=== PATIENT | female | born 1950 | race Caucasian/White ===

== ENCOUNTER 2020-01-09 05:40 | Outpatient (RCR) | payer MEDICARE ==
[~2020-01-09] VITALS: Ht 154 cm; Wt 109.0 kg
[~2020-01-09 05:40] MED LIST: LISI-552 PO
[2020-01-13] MEDS ORDERED: IBUP-1773 PO (09:25)
== END 2020-01-09 15:03 | disposition home or self-care (01) ==
LOC: PREOP 05:40
PROVIDERS: ATTEND Obstetrics & Gynecology
DX: Z01.818 Encounter for other preprocedural examination (principal); N95.0 Postmenopausal bleeding; Z20.828 Contact with and (suspected) exposure to other viral communicable diseases
CPT/HCPCS: 87635

== ENCOUNTER 2020-01-13 07:56 | Day surgery (SDC) | payer MEDICARE ==
[~2020-01-13] VITALS: Ht 154 cm; Wt 109.0 kg
[2020-01-13] VITALS (7 sets, daily range): BP systolic 114–145; BP diastolic 60–98
[2020-01-13] MEDS ORDERED: BUPIVACAINE 0.25% 30 ML (SENSORCAINE) VIAL ONE (08:13)
[2020-01-13] MEDS ORDERED: SEVOFLURANE (ULTANE) 15 ML INHAL SOLN ONE ×2 (08:24→09:51)
[2020-01-13] MEDS ORDERED: LIDOCAINE PF 2% 5 ML (XYLOCAINE) VIAL ONE (08:24)
[2020-01-13] MEDS ORDERED: proPOfol 200 MG/20 ML (DIPRIVAN) VIAL IV ONE (08:24)
[2020-01-13] MEDS ORDERED: MIDAZOLAM 2 MG/2 ML (VERSED) VIAL ONE (08:25)
[2020-01-13] MEDS ORDERED: fentaNYL INJECTION 100 MCG/2 ML AMP ONE (08:25)
[2020-01-13 08:38] LABS: BASOPHILS % (AUTO) 1 % (0-10); EOSINOPHILS # (AUTO) 0.2 10^3/uL (0.0-0.3); EOSINOPHILS % (AUTO) 3 % (0-10); HEMATOCRIT 43 % (35-52); HEMOGLOBIN 14.4 G/DL (11.5-16.0); LYMPHOCYTES # (AUTO) 1.8 X 10^3 (1.0-4.0); LYMPHOCYTES % (AUTO) 27 % (12-44); MEAN CORPUSCULAR HEMOGLOBIN 30 PG (25-34); MEAN CORPUSCULAR HGB CONC 34 G/DL (32-36); MEAN CORPUSCULAR VOLUME 89 FL (80-99); MEAN PLATELET VOLUME 13.3 FL (7.4-10.4); MONOCYTES # (AUTO) 0.8 X 10^3 (0.0-1.0); MONOCYTES % (AUTO) 12 % (0-12); NEUTROPHILS # (AUTO) 3.8 X 10^3 (1.8-7.8); NEUTROPHILS % (AUTO) 58 % (42-75); PLATELET COUNT 192 10^3/uL (130-400); RED CELL DISTRIBUTION WIDTH 15.4 % (10.0-14.5); WHITE BLOOD COUNT 6.5 10^3/uL (4.3-11.0)
--- OUTSIDE RECORDS SUMMARY | 2020-01-13 08:38 | XMS REPORT | CCD ---
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 [id number] 1 EA ~~ VANCOMYCIN: 1 GM VIAL [id number] 2355 MG Problems Unknown or Not Available. Procedures Procedure Code Procedure Type Date Arthroscopy shoulder surg debridement extensive; (-RT Right side of body) 55373 CPT 05/19/2016 Arthroscopy shoulder rotator cuff repair; (-RT Right s charisma of body) 18178 CPT 05/19/2016 Results Unknown or Not Available. Function Status Unknown or Not Available. History of Immunizations Unknown or Not Available. Plan of Treatment Unknown or Not Available. Social History Smoking Status Code Start Date End Date Former smoker [id number] Vital Signs Vital Sign Value Unit Date/Time Recent/I nitial? Weight Measured 225 [lb_av] 05/17/2016 12:54 Initial VS Height 62 [in_i] 05/17/2016 12:54 Initi al VS BMI (Body Mass Index) 41.15 kg/m2 05/17/2016 12 :54 Initial VS BSA (Body Surface Area) 2.11 m2 05/17/2016 12:54 Initial VS Respiratory Rate 23 /min 05/19/2016 11:42 Initial VS Heart Rate 91 /min 05/19/2016 11:42 I nitial VS O2 % BldC Oximetry 74 % 05/19/2016 11:42 Initial VS BP Systolic 107 mm[Hg] 05/19/2016 11:44 Initial VS BP Diastolic 49 mm[Hg] 05/19/2016 11:44 Initial VS BP Systolic 103 mm[Hg] 05/19/2016 12:13 Most Recent VS BP Diastolic 54 mm[Hg] 05/19/2016 12:13 Most Recent VS Respiratory Rate 21 /min 05/19/2016 12:13 Most Recent VS Heart Rate 79 /min 05/19/2016 12:13 M ost Recent VS O2 % BldC Oximetry 93 % 05/19/2016 12:13 Most Recent VS Function Status Unknown or Not Available. Goals Unknown or Not Available. ASSESSMENTS Unknown or Not Available. Health Concerns Section Unknown or Not Available.
--- OUTSIDE RECORDS SUMMARY | 2020-01-13 08:38 | XMS REPORT | Continuity of Care Document ---
Author Organization Unknown Address Unknown Phone Unavailable Allergies Active Description Code Type Severity Reaction Onset Reported/Identified Relationship to Patient Clinical Status Yes FENTANYL MILD MILD Yes FENTANYL MILD UNKNOWN Yes ZOSYN MILD MILD Yes ZOSYN MILD UNKNOWN Yes fentanyl [id number] Drug Allergy Mild ITCHING 01/07/2020 Yes No Known Drug Allergies [id number] Drug Allergy Unknown N/A 01/07/2020 Yes ranitidine [id number] Drug Allerg y Unknown N/A 01/07/2020 Medications Medication Packaging Start Date St op Date Route Dosage Sig LACTATED RINGERS 1000CC IV BAG INJ ml 04/06/2018 04/13/2018 CONTINUOUSEVERY 0 Hour OXYCODONE IR TAB 5 MG (OXY I R (IMMEDIATE RELEASE)) MG 04/06/2018 04/13/2018 PRN Q4H D5 LAC RINGERS 1000CC IV BAG INJ ml 04/06/2018 04/13/2018 CONTINUOUSEVERY 0 Hour ONDANSETRON VIAL INJ 4 MG/2CC (ZOFRAN 2CC VIAL) MG 04/06/2018 04/13/2018 PRN Q4H Hydromorphone inj 2mg/cc vial (Dilaudid) MG 04/06/2018 04/13/2018 PRN Q4H OXYCODONE IR TAB 5 MG (OXY I R (IMMEDIATE RELEASE)) TAB 04/06/2018 04/13/2018 PRN Q4H ALUM/MAG/SIMETH 30CC LIQ (MYLANTA PLUS) cc 04/06/2018 04/16/2018 PRN Q4H PANTOPRAZOLE VIAL INJ 40 MG (PROTONIX IV) MG 04/07/2018 04/16/2018 Daily&0900 Problems Date Dx Coded Attending Type Code Diagnosis Diagnosed By 07/30/2017 W 034.0 STRE PTOCOCCAL SORE THROAT 07/30/2017 W B95.3 STRE PTOCOCCUS PNEUMONIAE THE CAUSE OF DISEASES CLASSIFIED ELSEWHERE 04/07/2018 Rea Pina W 214.1 LIPOMA OF OTHER SKIN AND SUBCUTANEOUS TISSUE 04/07/2018 Rea Pina A 552.20 UNSPECIFIED VENTRAL HERNIA WITH OBSTRUCTION 04/07/2018 Rea Pina W 552.3 DIAPHRAGMATIC HERNIA WITH OBSTRUCTION 04/07/2018 Rea Pina W D17.1 BENIGN LIPOMATOUS NEOPLASM OF SKIN, SUBCU OF TRUNK 04/07/2018 Rea Pina A K43.6 OTHER AND UNSP VENTRAL HERNIA WITH OBSTRUCTION, W/O GA NGRENE 04/07/2018 Rea Pina W K44.9 DIAPHRAGMATIC HERNIA WITHOUT OBSTRUCTION OR GANGRENE Procedures There is no data. Results Test Result Range CBC with Auto Diff - 03/15/18 11:16 Baso% 0.50 % 0.00-2.50 Eos 0.2 K/uL 0.0-0.7 Eos% 2.9 % 0.0-7.0 Hct 43.8 % 36.0-46.0 Hgb 14.6 g/dL 13.0-15.0 Lym 1.75 K/uL 0.60-3.40 Lym% 28.5 % 10.0-50.0 MCH 30.3 pg 27.0-31.0 MCHC 33.3 g/dL 32.0-36.0 MCV 90.9 fL 80.0-97.0 [place]% 9.8 % 0.0-12.0 Tish% 58.3 % 37.0-80.0 Plt 186 K/uL 150-400 RBC 4.82 M/uL 3.60-5.00 RDW 15.2 % 11.6-14.8 WBC 6.15 K/uL 5.00-10.00 Tish 3.59 K/uL 2.00-6.90 [place] 0.6 K/uL 0.0-0.9 Baso 0.0 K/uL 0.0-0.2 Protime - 03/26/18 11:41 INR 0.9 1.0-4.0 Protime 10.9 Sec 9.9-12.8 MRSA Screen - 04/06/18 07:36 FINAL CULTURE RESULTS MRSA Negative Nasal Culture MEDIA PLATED Setup at 09:45 on 04/06/2018 BMP - 04/07/18 07:04 Anion Gap 13 6-14 BUN 12 mg/dL 5-25 Calcium 8.9 mg/dL 8.3-10.4 Chloride 103 mmol/L 95-114 CO2 27 mEq/L 22-33 Creat 0.87 mg/dL 0.50-1.50 eGFR 64 mL/min/1.73m2 >59 Glucose 112 mg/dL 70-110 Osmo 286 280-295 Potassium 4.6 mmol/L 3.5-5.3 Sodium 138 mmol/L 134-148 Surgical Pathology - 06/05/19 18:19 Surg Path Sent to [facility] Pathology Lipid Panel - 12/11/19 14:08 C/HDL 4.7 3.7-6.7 Cholesterol 202 mg/dL 100-240 HDL 43 mg/dL 30-85 LDL-Calculated 142 mg/dL 0-100 Trig 87 mg/dL 35-160 VLDL 17 mg/dL 0-42 Coronavirus SARS-CoV-2 SO 2018 - 0 07:52 Coronavirus Ab [Units/volume] in Serum Negative Negative Encounters ACCT No. Visit Date/Time Discharge Status Pt. Type Provider Facility Loc./Unit Complaint [id number] 12/30/2019 13:46:00 12/30/2019 23:59 :00 DIS King Arita [id number] 12/11/2019 14:06:00 12/11/2019 23:59 :00 DIS King Arita [id number] 12/11/2019 14:01:00 12/11/2019 23:59 :00 King Palencia [id number] 12/09/2019 11:39:00 12/09/2019 23:59 :00 DIS King Arita [id number] 12/09/2019 11:11:00 12/09/2019 23:59 :00 DIS King Arita [id number] 06/12/2019 13:48:00 06/12/2019 23:59: 00 King Palencia [id number] 06/05/2019 18:16:00 06/05/2019 23:59: 00 [facility] Outpatient King Brown [id number] 06/05/2019 16:11:00 06/05/2019 23:59: 00 King Palencia [id number] 05/29/2019 13:40:00 05/29/2019 23:59: 00 King Palencia [id number] 04/06/2018 06:45:00 04/07/2018 10:53: 00 DIS Outpatient SilvanaRea [facility] MED-SURG [id number] 03/26/2018 11:34:00 03/26/2018 23:59: 00 DIS Outpatient Rea Pina [id number] 03/15/2018 11:09:00 03/15/2018 23:59: 00 DIS Outpatient King Brown [id number] 03/13/2018 17:07:00 03/13/2018 23:59: 00 DIS Outpatient King Brown [id number] 04/05/2018 08:35:42 Document Registration [id number] 07/30/2017 14:20:00 Document Registration [id number] 01/09/2020 05:40:00 020 15:03:00 DIS Outpatient PASTOR DINERO DO [facility] PREOP POST MENOPAUSAL BLEEDI [id number] 01/13/2020 09:15:00 P EN Preadmit PASTOR DINERO DO [facility] SDC POST MENOPAUSAL BLEEDING [id number] 04/06/2018 06:45:00 Document Registration
[2020-01-13] MEDS ORDERED: LACTATED RINGERS 1,000 ML IV PRN (08:44)
[2020-01-13] MEDS ORDERED: ONDANSETRON 4 MG/2 ML (SDV) Z0FRAN ONE (09:18)
[2020-01-13] MEDS ORDERED: DEXAMETHASONE 10 MG/ML (DECADRON) 1 ML VIAL ONE (09:18)
--- NOTE | 2020-01-13 09:22 | Progress Note-Pre Operative ---
Pre-Operative Progress Note H&P Reviewed The H&P was reviewed, patient examined and no changes noted. Date Seen by Provider: Jan 13, 2020 Time Seen by Provider: 09:10 Date H&P Reviewed: Jan 13, 2020 Time H&P Reviewed: 09:15 Pre-Operative Diagnosis: PMB PASTOR DINERO DO Jan 13, 2020 09:22
[2020-01-13] MEDS ORDERED: D5 LR IV SOLUTION 1,000 ML IV SCH (09:23)
[2020-01-13] MEDS ORDERED: IBUP-1773 PO (09:25)
--- NOTE | 2020-01-13 09:26 | Discharge Inst-Women's Service ---
Discharge Inst-Women's Serv Depart Medication/Instructions New, Converted or Re-Newed RX: RX on Chart Problems Reviewed?: Yes Consults/Follow Up Additional Follow Up: Yes Orders/Referrals Dr. Dinero in 2 weeks Activity Activity: Activity as Tolerated Driving Instructions: No Driving for 1 Week NO SMOKING: NO SMOKING Nothing Inside Vagina: No Douching, No [place], No Tampons Diet Discharge Diet: No Restrictions Symptoms to Report to : Bleeding Excessive, Pain Increased, Fever Over 101 Degrees F, Vaginal Bleeding Increase, Questions/Concerns For Any Problems or Questions: Contact Your Physician PASTOR DINERO DO Jan 13, 2020 09:26
[2020-01-13] MEDS ORDERED: KETOROLAC 30 MG/ML VIAL IVP ONE (09:30)
[2020-01-13] MEDS ORDERED: ONDANSETRON 4 MG/2 ML (SDV) Z0FRAN IVP PRN (09:30)
--- NOTE | 2020-01-13 10:35 | Anesthesia-General Post-Op ---
General Patient Condition Mental Status/LOC: Same as Preop Cardiovascular: Satisfactory Nausea/Vomiting: Absent Respiratory: Satisfactory Pain: Controlled Complications: Absent Post Op Complications Complications None Follow Up Care/Instructions Patient Instructions None needed. Anesthesia/Patient Condition Patient Condition Patient is doing well, no complaints, stable vital signs, no apparent adverse anesthesia problems. No complications reported per nursing. AARON BROOKS CRNA Jan 13, 2020 10:35
--- NOTE | 2020-01-13 19:31 | OPERATIVE REPORT ---
DATE OF SERVICE: 01/13/2020 PREOPERATIVE DIAGNOSIS: A 69-year-old female with postmenopausal bleeding. POSTOPERATIVE DIAGNOSIS: A 69-year-old female with postmenopausal bleeding. PROCEDURE: D and C. SURGEON: Pastor Dinero DO ANESTHESIA: LMA. ESTIMATED BLOOD LOSS: Minimal. URINE OUTPUT: 25 mL drained at the start of the procedure. FLUIDS: 1000 mL lactated Ringer's solution. FINDINGS: As expected postmenopausal age vaginal atrophy cervical stenosis. SPECIMEN SENT: Endometrial curetting's. INDICATIONS FOR PROCEDURE: A 69-year-old female is a patient who underwent endometrial biopsy in the office for inadequate tissue was obtained. This biopsy was done for episode of postmenopausal bleeding. I discussed with the patient due to inadequacy of endometrial biopsy that I was unlikely that I passed through the cervix to obtain the tissue and this is likely due to cervical stenosis, I recommended the patient proceeding with D and C under anesthesia. Risks of procedure were discussed with the patient in detail and after all of her questions were answered, consent was obtained in the preoperative area, the patient was taken to the operating room. OPERATIVE REPORT IN DETAIL: Once in the operating room, anesthesia was found to be adequate, placed in dorsal lithotomy position, prepped and draped in normal sterile fashion. Timeout was performed. The bladder was then drained using straight catheterization. Weighted speculum was inserted to the patient's vagina. Right angle retractor was used to visualize the cervix, grasped at 12 o'clock position using a long Allis clamp. I then performed paracervical block at 3 and 9 o'clock positions on the cervix. 5 mL were used at each site using 0.25% Marcaine I injected. Care was taken to aspirate before injecting after which I gently sound the uterine cavity depth. I am unable to pass the sound through the cervix. Therefore, I have to use some long Metzenbaum to dilate the cervix by inserting the Metzenbaum scissors into the external cervical os and opening the scissors and tied to the os. I am able to open up the cervix. I then am able to sound the cavity depth was found to be approximately 7 to 8 cm. I then gently dilated the cervix using Hegar dilators to a maximum dilatation of approximately 8 mm at which point I performed a gentle curettage of the endometrium using a medium size endometrial curette. This was done on several different passes. A scant amount of endometrial tissue was collected. I sent this to pathology as endometrial curetting's, after which there was no active bleeding noted from any of my dissection planes. I removed all of the instruments from the patient's vagina. The patient tolerated the procedure well and was taken to recovery area in stable condition. Lap and sponge counts were correct at the end of the procedure. Instrument counts correct as well. Job ID: [id number] DocumentID: [id number] Dictated Date: 01/13/2020 10:09:14 Lang Path Therapist Date: 01/13/2020 19:30:47 Dictated By: PASTOR DINERO DO
== END 2020-01-13 11:30 | disposition home or self-care (01) ==
LOC: SDC 07:56
PROVIDERS: ATTEND Obstetrics & Gynecology
DX: N95.0 Postmenopausal bleeding (principal); E66.01 Morbid (severe) obesity due to excess calories; I10 Essential (primary) hypertension; Z68.42 Body mass index [BMI] 45.0-49.9, adult; Z88.8 Allergy status to other drugs, medicaments and biological substances; Z96.653 Presence of artificial knee joint, bilateral; Z87.891 Personal history of nicotine dependence; Z90.49 Acquired absence of other specified parts of digestive tract
CPT/HCPCS: 36415; 85025; 86850; 86900; 86901; 87081; 88305

== ENCOUNTER 2020-10-05 06:47 | Outpatient (RCR) | payer MEDICARE ==
[~2020-10-05] VITALS: Ht 157.5 cm; Wt 100.0 kg
[~2020-10-05 06:47] MED LIST changes: +IBUP-1773 PO; -LISI-552 PO; +LISI20TA26 PO
[2020-10-05] MEDS ORDERED: LOSA1TAB23 PO (16:21)
[2020-10-12] MEDS ORDERED: SMT80CT PO (07:31)
[2020-10-12] MEDS ORDERED: IBUP-844 PO (07:31)
[2020-10-12] MEDS ORDERED: HYDR-34 PO (07:31)
[2020-10-12] MEDS ORDERED: DCS100C PO (07:31)
== END 2020-10-06 15:27 | disposition home or self-care (01) ==
LOC: PREOP 06:47
PROVIDERS: ATTEND Obstetrics & Gynecology
DX: Z01.818 Encounter for other preprocedural examination (principal)

== ENCOUNTER 2020-10-12 06:07 | Day surgery (SDC) | payer MEDICARE ==
[~2020-10-12] VITALS: Ht 157.5 cm; Wt 100.0 kg
[2020-10-12] VITALS (13 sets, daily range): BP systolic 107–143; BP diastolic 60–73
[~2020-10-12 06:07] MED LIST changes: +LOSA1TAB23 PO
[2020-10-12] MEDS ORDERED: ceFAZolin 2 GM IV Premixed 50 ML IV ONE (06:15)
[2020-10-12] MEDS ORDERED: metroNIDAZOLE 500MG/100ML IVPB 100 ML IV ONE (06:15)
[2020-10-12] MEDS ORDERED: BUPIVACAINE 0.25% 30 ML (SENSORCAINE) VIAL ONE (06:20)
[2020-10-12] MEDS: LACTATED RINGERS 1,000 ML IV PRN ×2 (06:40→08:23)
[2020-10-12] MEDS ORDERED: proPOfol 200 MG/20 ML (DIPRIVAN) VIAL IV ONE (06:55)
[2020-10-12] MEDS ORDERED: ONDANSETRON 4 MG/2 ML (SDV) Z0FRAN ONE (06:55)
[2020-10-12] MEDS ORDERED: fentaNYL INJ 100 MCG/2 ML AMP ONE ×2 (06:55→08:24)
[2020-10-12] MEDS ORDERED: ROCURONIUM 10 MG/ML 5 ML SYRINGE IV ONE ×2 (06:55→08:18)
[2020-10-12] MEDS ORDERED: SEVOFLURANE (ULTANE) 15 ML INHAL SOLN ONE ×5 (06:55→09:18)
[2020-10-12] MEDS ORDERED: LIDOCAINE PF 2% 5 ML (XYLOCAINE) VIAL ONE (06:55)
[2020-10-12] MEDS ORDERED: MIDAZOLAM 2 MG/2 ML (VERSED) VIAL ONE (06:56)
[2020-10-12 06:58] LABS: BASOPHILS % (AUTO) 1 % (0-10); MEAN CORPUSCULAR HGB CONC 33 g/dL (32-36); MEAN CORPUSCULAR VOLUME 89 fL (80-99)
[2020-10-12 07:00] LABS: EOSINOPHILS # (AUTO) 0.2 10^3/uL (0.0-0.3); EOSINOPHILS % (AUTO) 3 % (0-10); HEMATOCRIT 41 % (35-52); HEMOGLOBIN 13.5 g/dL (11.5-16.0); LYMPHOCYTES # (AUTO) 2.1 10^3/uL (1.0-4.0); LYMPHOCYTES % (AUTO) 25 % (12-44); MEAN CORPUSCULAR HEMOGLOBIN 29 pg (25-34); MEAN PLATELET VOLUME 13.4 fL (9.0-12.2); MONOCYTES # (AUTO) 0.9 10^3/uL (0.0-1.0); MONOCYTES % (AUTO) 11 % (0-12); NEUTROPHILS # (AUTO) 4.9 10^3/uL (1.8-7.8); NEUTROPHILS % (AUTO) 60 % (42-75); PLATELET COUNT 216 10^3/uL (130-400); WHITE BLOOD COUNT 8.1 10^3/uL (4.3-11.0)
--- NOTE | 2020-10-12 07:26 | Progress Note-Pre Operative ---
Pre-Operative Progress Note H&P Reviewed The H&P was reviewed, patient examined and no changes noted. Date Seen by Provider: Oct 12, 2020 Time Seen by Provider: 07:10 Date H&P Reviewed: Oct 12, 2020 Time H&P Reviewed: 07:05 Pre-Operative Diagnosis: PMB, AUB, BMI 40 PASTOR DINERO DO Oct 12, 2020 07:26
[2020-10-12] MEDS ORDERED: ONDANSETRON 4 MG/2 ML (SDV) Z0FRAN IV PRN (07:30)
[2020-10-12] MEDS ORDERED: HYDROcodone/APAP 7.5 MG/325 MG (LORTAB, LORCET PLUS) TABLET PO PRN (07:30)
[2020-10-12] MEDS ORDERED: DOCUSATE SODIUM 100 MG (COLACE) CAP PO PRN (07:30)
[2020-10-12] MEDS ORDERED: SIMETHICONE 80 MG (MYLICON) CHEW PO PRN (07:30)
[2020-10-12] MEDS ORDERED: ZOLPIDEM 5 MG (AMBIEN) TAB PO PRN (07:30)
[2020-10-12] MEDS ORDERED: ANTACID SUSP 30 ML UDC (MYLANTA) PO PRN (07:30)
--- NOTE | 2020-10-12 07:30 | Discharge Inst-Women's Service ---
Discharge Inst-Women's Serv Depart Medication/Instructions New, Converted or Re-Newed RX: RX on Chart Problems Reviewed?: Yes Consults/Follow Up Additional Follow Up: Yes Orders/Referrals Dr. Garza in 7-10 days and in 8 weeks Activity Activity: Activity as Tolerated Driving Instructions: No Driving for 1 Week NO SMOKING: NO SMOKING Nothing Inside Vagina: No Douching, No [place], No Tampons Diet Discharge Diet: No Restrictions Symptoms to Report to : Bleeding Excessive, Pain Increased, Fever Over 101 Degrees F, Vaginal Bleeding Increase, Questions/Concerns For Any Problems or Questions: Contact Your Physician Skin/Wound Care Infection Signs and Symptoms: Increased Redness, Foul Odor of Wound, Increased Drainage, Skin Itchy or Has a Rash, Increased Swelling, Temperature Above 101 F Operative Area Clean and Dry: Keep Incision Clean/Dry Stitches/Lloyd/Dermabond: Dermabond, Care of Stitches Bathing Instructions: PASTOR Aguiar DO Oct 12, 2020 07:29
[2020-10-12] MEDS ORDERED: DCS100C PO (07:31)
[2020-10-12] MEDS ORDERED: SMT80CT PO (07:31)
[2020-10-12] MEDS ORDERED: HYDR-34 PO (07:31)
[2020-10-12] MEDS ORDERED: IBUP-844 PO (07:31)
[2020-10-12] MEDS ORDERED: PHENYLEPHRINE 100 MCG/ML 10 ML (ANESTHESIA) SYR ONE (09:18)
[2020-10-12] MEDS ORDERED: KETOROLAC 30 MG/ML VIAL ONE (09:24)
[2020-10-12] MEDS ORDERED: MEPERIDINE (DEMEROL) INJ 50 MG/ML IVP ONE (09:30)
[2020-10-12] MEDS ORDERED: fentaNYL INJ 100 MCG/2 ML AMP IVP ONE (09:30)
[2020-10-12] MEDS ORDERED: morphine INJ 10 MG/ML 1ML (SYR OR VIAL) IVP ONE (09:30)
[2020-10-12] MEDS ORDERED: ONDANSETRON 4 MG/2 ML (SDV) Z0FRAN IVP PRN (09:30)
[2020-10-12] MEDS: KETOROLAC 30 MG/ML VIAL IV PRN ×2 (09:31→15:22)
--- NOTE | 2020-10-12 10:16 | Anesthesia-General Post-Op ---
General Patient Condition Mental Status/LOC: Same as Preop Cardiovascular: Satisfactory Nausea/Vomiting: Absent Respiratory: Satisfactory Pain: Controlled Complications: Absent Post Op Complications Complications None Follow Up Care/Instructions Patient Instructions None needed. Anesthesia/Patient Condition Patient Condition Patient is doing well, no complaints, stable vital signs, no apparent adverse anesthesia problems. No complications reported per nursing. ARAM MARIN CRNA Oct 12, 2020 10:16
[2020-10-12] MEDS: LACTATED RINGERS 1,000 ML IV SCH (12:00)
[2020-10-12] MEDS: CHLORASEPTIC LOZENGE MM PRN ×2 (15:21→18:05)
--- NOTE | 2020-10-12 18:57 | OPERATIVE REPORT ---
DATE OF SERVICE: PREOPERATIVE DIAGNOSES: 1. A 70-year-old female with recurrent abnormal postmenopausal bleeding. 2. BMI of greater than 40. POSTOPERATIVE DIAGNOSES: 1. A 70-year-old female with recurrent abnormal postmenopausal bleeding. 2. BMI of greater than 40. PROCEDURE: Robotic-assisted total laparoscopic hysterectomy with bilateral salpingo-oophorectomy. SURGEON: Donaldo Dinero DO ANESTHESIA: General endotracheal. ESTIMATED BLOOD LOSS: Minimal. URINE OUTPUT: 40 mL clear at the end of procedure. FLUIDS: 1150 mL lactated Ringer's solution. FINDINGS: Uterus with multiple subserosal fibroids noted. Fallopian tubes and ovaries and all the pelvic anatomy has filmy adhesions to the surrounding structures including the lateral pelvic sidewall, the anterior vesicouterine peritoneum and the sigmoid colon. SPECIMEN SENT: Uterus, bilateral fallopian tubes and ovaries. INDICATIONS FOR PROCEDURE: This 70-year-old female is a patient who had sought care in my office after being consulted to me from Dr. Brown in [place] for postmenopausal bleeding. Her initial evaluation revealed no signs of hyperplasia or malignancy. However, she continued to have recurrent bleeding and has concerns due to thickened endometrium finding showing up on ultrasound. I discussed with the patient proceed with more definitive measures for her bleeding in the form of hysterectomy versus ongoing use of progestin to suppress any further bleeding. Risk of both were discussed with the patient in detail and after everything was thought through the patient and discussed with myself and all questions were answered, she decided to proceed with more aggressive measure of removing the uterus, risk of the procedure were discussed with the patient in detail including risk of bleeding, infection, damage to surrounding structures including, but not limited to bowel, bladder, ureter, kidneys, possible need for operation, postoperative complications that may occur, recovery timeframe, risk from anesthesia and even . After everything was discussed with the patient in detail, consent was obtained in the preoperative area, the patient was taken to the operating room. OPERATIVE REPORT IN DETAIL: Once in the operating room, anesthesia was found to be adequate. She was placed in dorsal lithotomy position, prepped and draped in normal sterile fashion. Timeout was performed and a Wells catheter was placed using sterile technique. A weighted speculum was inserted to the patient's vagina. Right angle retractor was utilized. Cervix was grasped at 12 o'clock position using a long Allis clamp and 0 Vicryl suture was then placed in anterior lip of the cervix and the Allis clamp was removed using my retraction point. I then gently sound the uterine cavity, depth was found to be 8 cm. I selected an 8 cm Nieves uterine manipulator tip and a 3.5 cm colpotomy ring. The manipulator tip was advanced into the uterus where the balloon was deployed. Colpotomy ring was advanced around the vaginal fornix, after which all the other instruments were removed from the patient's vagina, performed change of gloves and took my attention to the abdomen where supraumbilically I infiltrated this area using 0.25% Marcaine to make an 8 mm incision with a knife and directed Veress needle through the incision until intraperitoneal placement was confirmed using saline drop test. An Aortic pressure of 5 mmHg was noted, proceeded to maximum pressure of 15 mmHg using CO2 gas and then removed the Veress needle and introduced an 8 mm blunt laparoscopic da Foreign camera trocar. Once this was in place, I am able to confirm intraperitoneal placement using the da Foreign laparoscope. A brief scan of the upper abdominal anatomy shows some filmy incurred and adhesions of the omentum from previous surgeries, but otherwise grossly normal. I then had the patient placed in steep Trendelenburg and able to visualize all my pelvic anatomy as described in my findings above. I then placed two lateral trocars approximately 12 cm lateral to my supraumbilical trocar. Both of these were 8 mm trocars were placed under direct visualization and laparoscope. Once both these trocars were in place, I bring in the da Foreign robot and docked in appropriate fashion, placed in the da Foreign vessel sealer in the left hand and monopolar ramakrishna in the right hand performed the following dissection bilaterally. First, I take down all the filmy adhesions that I can to free up the ovary and bilateral fallopian tubes. Once these were both freed up, I started at the end of the infundibulopelvic ligament, which I bipolar cauterized and sealed using the vessel sealer and transected using the vessel sealer. I then grasped the round ligament, which I bipolar cauterized and transected using the vessel sealer. I then grasped the entire broad ligament, which I bipolar cauterized and transected using vessel sealer down to the level of the lower uterine segment, at which point I the anterior and posterior leaflets of the broad ligament. Anterior leaflet was taken around to the anterior vaginal fornix and posterior leaflets was taken around to the posterior vaginal fornix. This allows me to skeletonize the uterine vessels laterally, which I bipolar cauterized and transected using the vessel sealer. I then created a colpotomy at 12 o'clock position using monopolar ramakrishna and took this circumferentially around the vaginal fornix amputating the cervix, uterus, bilateral fallopian tubes and ovaries through the vagina. I then closed the lateral vaginal apices of the vaginal cuff using 2-0 Vicryl suture in a [id number] fashion colposuspending the uterosacral ligaments. I then closed the remainder of the vaginal cuff using 2-0 V-Loc in a running fashion, after which no bleeding noted from any of my dissection planes. I then undocked the da Foreign robot, proceeded with remainder of the case laparoscopically. I copiously irrigated the pelvis once more time using normal saline. Once again, there was no active bleeding noted from any of my dissection planes. I placed FloSeal hemostatic agent over all my planes of dissection to ensure excellent postoperative hemostasis. I then removed the lateral trocars under direct visualization of laparoscope. The supraumbilical trocar was left in place to release insufflation and to introduce 10 mL of 0.25% Marcaine into the peritoneal cavity for postoperative pain management. I then removed this trocar as well. The skin reapproximated using 4-0 Monocryl interrupted subcuticular stitches. Dermabond was applied to incision and Band-Aids were placed over these. Wells catheter was left in place. The patient tolerated the procedure well and sent to recovery area in stable condition. Lap and sponge counts were correct at the end of the procedure. Instrument counts correct as well. Two grams of Ancef, 500 mg of Flagyl were given preoperatively for infection prophylaxis. Job ID: [id number] DocumentID: [id number] Dictated Date: 10/12/2020 09:43:04 Slot Service Specialist Date: 10/12/2020 18:57:34 Dictated By: DONALDO DINERO DO
[2020-10-13] MEDS: LACTATED RINGERS 1,000 ML IV SCH (00:59)
[2020-10-13] MEDS ORDERED: IBUPROFEN 600 MG (MOTRIN) TAB PO SCH (01:00)
[2020-10-13 01:30] VITALS: BP 128/63
[2020-10-13 04:25] VITALS: BP 124/60
[2020-10-13 08:00] VITALS: BP 123/68
[2020-10-13 09:50] VITALS: BP 123/68
== END 2020-10-13 09:50 | disposition home or self-care (01) ==
LOC: SDC 06:07 → WS 11:05 → SDC 10-13 09:50
PROVIDERS: ATTEND Obstetrics & Gynecology
DX: D25.2 Subserosal leiomyoma of uterus (principal); D25.1 Intramural leiomyoma of uterus; D25.0 Submucous leiomyoma of uterus; N84.0 Polyp of corpus uteri; N80.0 Endometriosis of uterus; N83.312 Acquired atrophy of left ovary; I10 Essential (primary) hypertension; N83.311 Acquired atrophy of right ovary; E66.01 Morbid (severe) obesity due to excess calories; Z68.41 Body mass index [BMI] 40.0-44.9, adult; Z87.891 Personal history of nicotine dependence; Z98.890 Other specified postprocedural states; Z88.5 Allergy status to narcotic agent; Z88.8 Allergy status to other drugs, medicaments and biological substances; Z90.81 Acquired absence of spleen; Z79.2 Long term (current) use of antibiotics; Z79.899 Other long term (current) drug therapy
CPT/HCPCS: 36415; 85025; 86850; 86900; 86901; 87081; 88309

== ENCOUNTER → 2023-01-04 | Outpatient (CLI) | payer MEDICARE ==
[~2023-01-04] MED LIST changes: +BIOT1TAB PO; +DOCU-239 PO; +HYDR-34 PO; +IBUP-844 PO; +MULT-1136 PO; +REGADENOSON 0.4 MG/5 ML SYR (LEXISCAN) IV ONE; +SMT80CT PO
[2023-01-04] MEDS: CATHETER FLUSH 10 ML SYR IVP PRN ×2 (12:20→13:26)
[2023-01-04 13:19] VITALS: BP 137/89
--- NOTE | 2023-01-04 15:52 | Cardiology Stress Test Report ---
Stress Test Report Date of Procedure/Referring: Date of Procedure: Jan 04, 2023 PCP King Brown DO Admitting Physician Admitting Physician: Attending Physician: Mele Orellana MD Indications: CP Baseline Heart Rate: 83 Baseline Blood Pressure: Blood Pressure Systolic: 137 Blood Pressure Diastolic: 89 Baseline Vitals Vital Signs Date Time Temp Pulse Resp B/P (MAP) Pulse Ox O2 Delivery O2 Flow Rate FiO2 01/04/23 13:19 81 16 137/89 (105) 98 Room Air Baseline EKG: Baseline EKG: NSR Summary After explaining the procedure to the patient, she signed a consent and then brought to the stress nuclear laboratory. Patient received 0.4 mg Lexiscan for stress test, ECG, heart rate and blood pressure were monitored continuously. Resting and stress dose of radio tracer were injected, imaging was acquired and reviewed in short axis, horizontal long axis and vertical long axis views. TID: 0.97 SSS: 14 SDS: 6 EF: 42 Patient tolerated Lexiscan well Reversible ischemia involving the anterior wall, anterolateral wall and inferolateral wall Prominent left ventricle with diffuse left ventricular hypokinesia more pronounced at the apex, ejection fraction 42% Copy Copies To 1: KING BROWN DO Copies To 2: YONIS AMATO BASHAR J MD Jan 04, 2023 15:52
== END ==
LOC: CARD 11:48
PROVIDERS: ATTEND Internal Medicine Cardiovascular Disease
DX: R07.9 Chest pain, unspecified (principal)
CPT/HCPCS: 78452; 93017; A9502

== ENCOUNTER 2023-01-06 08:05 | Day surgery (SDC) | payer MEDICARE ==
[~2023-01-06] VITALS: Ht 154.9 cm; Wt 95.3 kg
[2023-01-06] VITALS (8 sets, daily range): BP systolic 98–118; BP diastolic 57–73
[~2023-01-06 08:05] MED LIST changes: -BIOT1TAB PO; -MULT-1136 PO; -REGADENOSON 0.4 MG/5 ML SYR (LEXISCAN) IV ONE
[2023-01-06] MEDS ORDERED: NS IV 1000 ML 1,000 ML ONE (08:08)
[2023-01-06] MEDS ORDERED: LIDOCAINE 1% INJ 20 ML VIAL ONE (08:08)
[2023-01-06] MEDS ORDERED: HEParin (CATH LAB) 2,000 ML IV ONE (08:08)
[2023-01-06] MEDS ORDERED: NS IV 1000 ML 1,000 ML IV SCH ×2 (08:15→10:30)
[2023-01-06 08:35] LABS: HEMOGLOBIN 14.1 g/dL (11.5-16.0)
[2023-01-06 08:36] LABS: BILIRUBIN,URINE NEGATIVE (NEGATIVE); CLARITY,URINE SL CLOUDY; COLOR,URINE DARK YELLOW; GLUCOSE, URINE (UA) NEGATIVE (NEGATIVE); KETONES,URINE NEGATIVE (NEGATIVE); LEUKOCYTE ESTERASE ,URINE TRACE (NEGATIVE); NITRITE,URINE NEGATIVE (NEGATIVE); PROTEIN,URINE NEGATIVE (NEGATIVE)
[2023-01-06 08:37] LABS: MEAN PLATELET VOLUME 13.5 fL (9.0-12.2); WHITE BLOOD COUNT 5.8 10^3/uL (4.3-11.0)
[2023-01-06 08:46] LABS: WBC,URINE 0-2 /HPF
[2023-01-06 08:47] LABS: BACTERIA,URINE FEW /HPF
[2023-01-06 08:55] LABS: BILIRUBIN,TOTAL 0.6 MG/DL (0.1-1.0); CREATININE SERUM 0.8 MG/DL (0.60-1.30); POTASSIUM 3.8 MMOL/L (3.6-5.0); TOTAL PROTEIN 7.6 GM/DL (6.4-8.2)
[2023-01-06] MEDS ORDERED: MULT-1136 PO (09:01)
[2023-01-06] MEDS ORDERED: BIOT1TAB PO (09:01)
[2023-01-06] MEDS ORDERED: VERAPAMIL 5 MG/2 ML (CALAN) VIAL IV ONE (09:27)
[2023-01-06] MEDS ORDERED: HEParin 1000 UNIT/ML (10ML VIAL) FOR BOLUS ONE (09:27)
[2023-01-06] MEDS ORDERED: MIDAZOLAM 5 MG/5 ML (VERSED) VIAL ONE (09:27)
[2023-01-06] MEDS ORDERED: fentaNYL INJ 100 MCG/2 ML AMP ONE (09:27)
[2023-01-06] MEDS ORDERED: NITRO DRIP 25000 MCG/D5W 250 ML IV ONE (09:28)
--- NOTE | 2023-01-06 09:36 | Cardiac Procedure Note-CS/ASA ---
Pre-Procedure Note Pre-Op Procedure Note Date of Available H&P: Jan 05, 2023 Date H&P Reviewed: Jan 06, 2023 Time H&P Reviewed: 09:35 History & Physical: H&P Reviewed, Patient Examed, No changes noted Pre-Operative Diagnosis: Coronary artery disease Moderate Sedation PreProcedure Time 09:35 ASA Score 3 Airway Lungs Heart ASA score ASA 1: a normal healthy patient ASA 2: a patient with a mild systemic disease (mid diabetes, controlled hypertension, obesity ASA 3: a patient with a severe systemic disease that limits activity (angina, COPD, prior Myocardial infarction) ASA 4: a patient with an incapacitating disease that is a constant threat to life (CHF, renal failure) ASA 5: a moribund patient not expected to survive 24 hrs. (ruptured aneurysm) ASA 6: a declared brain- patient whose organs are being harvested. For emergent operations, add the letter E after the classification Mallampati Classification Grade 3 Sedation Plan Analgesia, Amnesia, Plan communicated to team members, Discussed options with patient/fam, Discussed risks with patient/fam The patient is an appropriate candidate to undergo the planned procedure, sedation, and anesthesia. The patient immediately re-assessed prior to indication. EDIN SIERRA MD Jan 06, 2023 09:35
--- NOTE | 2023-01-06 10:32 | Discharge Inst-Post CATH ---
Discharge Inst-CATH/EP Problems Reviewed?: Yes Post Cardiac Cath/EP D/C Inst Follow Up/Plan Appointment with Dr. Orellana's office in 2 to 4 weeks <b>CARDIAC CATH/EP PROCEDURE DISCHARGE INSTRUCTIONS</b> ACTIVITY * Go Home directly and rest. * Limit activity of the leg (or wrist if it was used) for 7 days including aer obics, swimming, jogging, bicycling, etc. * Restrict stair-climbing for 7 days if possible, if not, climb up with your non-cath leg, then bring together on the same step. * Avoid lifting, pushing, pulling or excessive movement of the affected extremi ty for 7 days. * Customary sexual activity may be resumed after 2 days-use caution not to use a position that strains or causes pain to the affected extremity. * No driving for 24 hours. * NO SMOKING. * Avoid straining for bowel movements for 7 days. * Gentle walking on level ground is allowed. * Returning to work will depend on the type of procedure and the results. Your doctor will discuss this with you. CALL YOUR DOCTOR FOR ANY OF THE FOLLOWING: *If bleeding from the puncture site occurs- Apply gentle pressure to site with clean cloth and call your doctor or EMS. * If a knot or lump forms under the skin, increases in size, or causes pain. * If bruising appears to be worsening or moving further down your leg instead of disappearing. * Temperature above 101 F. CARE OF YOUR GROIN INCISION; * Bruising or purple discoloration of the skin near the puncture site is common. * You may shower only, no bathtub bathing for 5 days. Be careful to avoid slipping as your leg may feel stiff. * If a closure device was used on your femoral artery, please see the attached guide regarding care of the device and your leg. * Leave dressing on FOR 24 hours. CARE OF YOUR WRIST INCISION; * Bruising or purple discoloration of the skin near the puncture site is common. * You may shower. * DO NOT submerge wrist. * Leave dressing on FOR 24 hours. EDIN ORELLANA MD Jan 06, 2023 10:32
--- NOTE | 2023-01-06 10:35 | Cardiac Cath Report ---
Cardiac Cath Report Physician (s)/Field Training Manager (s) Physician EDIN SIERRA MD Pre-Procedure Diagnosis Pre-Procedure Diagnosis: Coronary artery disease Post-Procedure Note Procedure Start Date: Jan 06, 2023 Name of Procedure: Left heart catheterization Findings/Procedure Note PROCEDURE NOTE: 72-year-old lady with history of chest pain, had an abnormal stress test. Scheduled for cardiac catheterization possible PTCA. After explaining the procedure to the patient, all pros and cons were explained, all questions were answered. The patient signed the consent and then she was placed in the cardiac catheterization laboratory. Groin was prepped in SL fashion local anesthesia was used. Sheath placed in the right radial artery, [place] catheter was advanced to the left ventricular cavity, pressure was measured, pullback LV to aorta was done, engage the right and left coronary system, angiogram was done. At the end of the procedure the sheath was removed. Vascular band was used FINDINGS: Hemodynamics LV 98/11, end-diastolic pressure of 11 Aorta 104/65 mean of 79 ANATOMY: Left Main is free of obstructive disease Left Anterior Descending is tortuous artery with mild disease nonobstructive disease Left Circumflex is nondominant artery with no obstructive disease Right Coronary Artery is tortuous artery dominant artery with no obstructive disease LV Gram was not done, pressure was measured CONCLUSION: Slightly tortuous coronary system with mild coronary artery disease nonobstructive disease Normal left ventricular end-diastolic pressure DISCUSSION AND RECOMMENDATION: Chest pain is probably noncardiac. Abnormal stress test is probably due to extracardiac attenuation. Conservative management is recommended Anesthesia Type: Conscious Sedation Estimated blood loss (mL): 10 ml Contrast Amount: 34 ml Total Radiation Dose: 492 mGy Post-Procedure Diagnosis Post-operative diagnosis: Chest pain Coronary artery disease Hyperlipidemia EDIN SIERRA MD Jan 06, 2023 10:35
== END 2023-01-06 14:00 | disposition home or self-care (01) ==
LOC: CATH 08:05 → SDC 10:45 → CATH 14:00
PROVIDERS: ATTEND Internal Medicine Cardiovascular Disease
DX: I25.10 Atherosclerotic heart disease of native coronary artery without angina pectoris (principal); I65.23 Occlusion and stenosis of bilateral carotid arteries; E78.5 Hyperlipidemia, unspecified; E66.01 Morbid (severe) obesity due to excess calories; Z68.39 Body mass index [BMI] 39.0-39.9, adult; Z87.891 Personal history of nicotine dependence; Z79.82 Long term (current) use of aspirin; Z96.659 Presence of unspecified artificial knee joint; Z98.890 Other specified postprocedural states
CPT/HCPCS: 80053; 80061; 81000; 85027; 85610; 85730; 87077; 87081; 87088; 93005; 93458; C1894; 36415